=== PATIENT | male | born 1965 | race African-American/Black ===

== ENCOUNTER 2017-06-02 15:12 | Emergency (ER) | payer MEDICAID ==
[~2017-06-02] VITALS: Ht 182.9 cm; Wt 95.0 kg
[2017-06-02 15:14] VITALS: BP 134/92
[2017-06-02] MEDS ORDERED: METO-396 PO (15:17)
[2017-06-02] MEDS ORDERED: FLUO10CA25 PO (15:17)
[2017-06-02] MEDS ORDERED: TRAZ-129 PO (15:17)
[2017-06-02] MEDS ORDERED: QUET25TA PO (15:17)
[2017-06-02] MEDS ORDERED: ASPIRIN 81MG TABLET PO STA (15:24)
[2017-06-02] MEDS ORDERED: NITROGLYCERIN OINT 1GM/INCH UDPKT TD STA (15:24)
[2017-06-02] MEDS ORDERED: NITROGLYCERIN 0.4MG TABLET SL SL PRN (15:30)
== END 2017-06-02 15:27 | disposition left against medical advice (07) ==
LOC: ER 15:27
DX: R07.89 Other chest pain (principal); I48.91 Unspecified atrial fibrillation; I10 Essential (primary) hypertension; E11.9 Type 2 diabetes mellitus without complications; Z79.82 Long term (current) use of aspirin
CPT/HCPCS: 99283

== ENCOUNTER 2018-07-16 20:53 | Emergency (ER) | payer MEDICAID ==
[~2018-07-16] VITALS: Ht 172.7 cm; Wt 100.0 kg
[~2018-07-16 20:53] MED LIST: FLUO10CA25 PO; METO-396 PO; QUET25TA PO; TRAZ-212 PO
[2018-07-16 20:55] VITALS: BP 170/110
== END 2018-07-16 21:00 | disposition left against medical advice (07) ==
LOC: ER 20:53
DX: Z53.21 Procedure and treatment not carried out due to patient leaving prior to being seen by health care provider (principal)

== ENCOUNTER 2019-06-26 12:22 | Inpatient (IN) | payer MEDICAID ==
[~2019-06-26] VITALS: Ht 188 cm; Wt 90.3 kg
[~2019-06-26 12:22] MED LIST changes: -TRAZ-212 PO; +TRAZ-251 PO
[2019-06-26 17:51] LABS: BASOPHILS % 0.4 % (0.0-2.0); EOSINOPHILS % 0.6 % (0.0-5.0); HEMATOCRIT. 37.4 % (42.0-52.0); HEMOGLOBIN. 11.8 g/dL (14.0-18.0); LYMPHOCYTES % 14.2 % (20.0-50.0); MEAN CORPUSCULAR HEMOGLOBIN 31.5 pg (28.0-32.0); MEAN CORPUSCULAR VOLUME 100.2 fL (80.0-94.0); MEAN PLATELET VOLUME 9.4 fl (7.4-10.4); MONOCYTES % 8.1 % (2.0-8.0); NEUTROPHILS % 76.7 % (40.0-76.0); PLATELET 196 x1000/uL (130-400); RED BLOOD CELL COUNT 3.73 mill/uL (4.7-6.1); RED CELL DISTRIBUTION WIDTH 14.4 % (11.6-14.6)
[2019-06-26 17:56] LABS: CHLORIDE 82 mEq/L (98-107)
[2019-06-26] MEDS ORDERED: SODIUM CHLORIDE 0.9% 1,000 ML IV ONE ×4 (18:35→21:00)
[2019-06-26] MEDS ORDERED: INSULIN REGULAR (HUMULIN R) 300UNITS/3ML SUBCUT ONE (20:30)
[2019-06-27 00:56] LABS: CHLORIDE 99 mEq/L (98-107)
[2019-06-27] MEDS ORDERED: TAMS-11 PO (02:59)
[2019-06-27] MEDS ORDERED: METO-539 PO (02:59)
[2019-06-27] MEDS ORDERED: TRAZ-252 PO (02:59)
[2019-06-27] MEDS ORDERED: FERR-71 PO (02:59)
[2019-06-27] MEDS ORDERED: RIVA20TA PO (02:59)
[2019-06-27] MEDS ORDERED: AMLO5TAB4 PO (02:59)
[2019-06-27] MEDS ORDERED: HUM100IN SUBCUT (02:59)
[2019-06-27] MEDS ORDERED: HUM100IN SQ (02:59)
[2019-06-27] MEDS ORDERED: ALLO300T2 PO (02:59)
[2019-06-27] MEDS ORDERED: AMLO-79 PO (02:59)
[2019-06-27 03:04] VITALS: BP 128/87
[2019-06-27 03:07] VITALS: BP 128/87
[2019-06-27] MEDS ORDERED: TRAZODONE HCL 50MG TABLET PO PRN (03:30)
[2019-06-27] MEDS ORDERED: DEXTROSE 50% WATER 50ML SYRINGE IV PRN (03:30)
[2019-06-27 04:00] VITALS: BP 112/82
[2019-06-27] MEDS: BLOOD SUGAR DIAGNOSTIC STRIP TEST SCH ×2 (06:10→12:32)
[2019-06-27 08:00] VITALS: BP 124/88
[2019-06-27] MEDS ORDERED: METFORMIN HCL 500MG TABLET PO SCH (08:10)
[2019-06-27] MEDS ORDERED: INSULIN LISPRO 100 UNITS/ML SUBCUT SCH (08:10)
[2019-06-27] MEDS ORDERED: POTASSIUM CHLORIDE 20MEQ TABLET SR PO SCH (08:15)
[2019-06-27] MEDS ORDERED: BENAZEPRIL 10MG TABLET PO SCH (09:00)
[2019-06-27] MEDS ORDERED: AMLODIPINE 10MG TABLET PO SCH (09:00)
[2019-06-27] MEDS ORDERED: TAMSULOSIN HCL 0.4MG SR CAPSULE PO SCH (09:00)
[2019-06-27] MEDS ORDERED: ALLOPURINOL 300 MG TABLET PO SCH (09:00)
[2019-06-27] MEDS ORDERED: METOPROLOL TARTRATE 50MG TABLET PO SCH (09:00)
[2019-06-27] MEDS ORDERED: INSULIN GLARGINE UD 100 UNITS/ML SYR SUBCUT SCH ×2 (10:00)
[2019-06-27 11:47] LABS: BASOPHILS % 0.4 % (0.0-2.0); EOSINOPHILS % 0.9 % (0.0-5.0); HEMATOCRIT. 34.8 % (42.0-52.0); HEMOGLOBIN. 11.3 g/dL (14.0-18.0); LYMPHOCYTES % 19.6 % (20.0-50.0); MEAN CORPUSCULAR HEMOGLOBIN 31.1 pg (28.0-32.0); MEAN CORPUSCULAR VOLUME 95.7 fL (80.0-94.0); MEAN PLATELET VOLUME 8.7 fl (7.4-10.4); MONOCYTES % 6.9 % (2.0-8.0); NEUTROPHILS % 72.2 % (40.0-76.0); PLATELET 190 x1000/uL (130-400); RED BLOOD CELL COUNT 3.64 mill/uL (4.7-6.1); RED CELL DISTRIBUTION WIDTH 13.9 % (11.6-14.6)
[2019-06-27 12:00] LABS: CHLORIDE 96 mEq/L (98-107)
[2019-06-27 12:08] LABS: LDL CHOLESTEROL 41 mg/dL (5-100)
[2019-06-27 12:10] LABS: HDL CHOLESTEROL 49 mg/dL (40-59)
[2019-06-27] MEDS ORDERED: RIVAROXABAN 20 MG TABLET PO SCH (17:00)
== END 2019-06-27 13:39 | disposition left against medical advice (07) | DRG 420 ==
LOC: ER 12:22 → 7WST 20:47 → EDBEDREQ 20:51 → EDBEDREQSVC 20:51 → EDBEDREQTM 20:51 → ENRESERV 21:14
PROVIDERS: ADMIT Internal Medicine; ATTEND Internal Medicine
DX: E11.65 Type 2 diabetes mellitus with hyperglycemia (principal); E44.1 Mild protein-calorie malnutrition; E87.8 Other disorders of electrolyte and fluid balance, not elsewhere classified; E87.1 Hypo-osmolality and hyponatremia; Z53.29 Procedure and treatment not carried out because of patient's decision for other reasons; D64.9 Anemia, unspecified; I48.91 Unspecified atrial fibrillation; I10 Essential (primary) hypertension; Z68.25 Body mass index [BMI] 25.0-25.9, adult; Z79.899 Other long term (current) drug therapy
CPT/HCPCS: 36415; 80048; 80053; 80061; 82010; 82962; 83036; 85025; 86850; 86900; 93005; 99285; J1815; J7030